=== PATIENT | male | born 1975 | race Caucasian/White ===

== ENCOUNTER 2021-07-13 16:22 | Emergency (ER) | payer SELFPAY ==
[~2021-07-13] VITALS: Ht 170.2 cm; Wt 80.0 kg
[2021-07-14] MEDS ORDERED: ACETAMINOPHEN 325MG TABLET PO STA (02:29)
[2021-07-14] MEDS ORDERED: NAPR-681 PO (04:55)
[2021-07-14 05:16] VITALS: BP 128/74
== END 2021-07-14 05:17 | disposition home or self-care (01) ==
LOC: ER 16:59
DX: S09.8XXA Other specified injuries of head, initial encounter (principal); M25.562 Pain in left knee; M25.561 Pain in right knee; Y04.2XXA Assault by strike against or bumped into by another person, initial encounter; Y93.89 Activity, other specified; Z91.81 History of falling; Y92.89 Other specified places as the place of occurrence of the external cause
CPT/HCPCS: 70450; 73562; 99284; Z7610